=== PATIENT | male | born 1950 | race American Indian/Alaskan Native ===

== ENCOUNTER 2019-01-26 09:47 | Day surgery (SDC) | payer OTHER ==
--- NOTE | 2019-01-26 10:26 | Anesthesia Day of Surgery ---
Anesthesia Day of Surgery - Day of Surgery Patient Examined: Yes Patient H&P Reviewed: Yes Patient is NPO: Yes Beta Blockers: No
--- NOTE | 2019-01-26 10:27 | Anesthesia Consultation ---
Anesthesia Consult and Med Hx Date of service: 01/26/19 - Airway Anesthetic Teeth Evaluation: Good ROM Head & Neck: Adequate Mental/Hyoid Distance: Adequate Mallampati Class: Class III Intubation Access Assessment: Good - Pulmonary Exam CTA: No - Cardiac Exam Cardiac Exam: No Murmur - Pre-Operative Health Status ASA Pre-Surgery Classification: ASA3 Proposed Anesthetic Plan: MAC - Cardiovascular System Hx Hypertension: Yes - Central Nervous System CVA: Yes - Endocrine Hx Hypothyroidism: Yes - Other Systems Hx Cancer: Yes
[2019-01-26] MEDS ORDERED: NACL 0.9% 1000 ML 1,000 ML IV SCH (11:00)
[2019-01-26] MEDS ORDERED: DIPRIVAN 10 MG/ML IV ONE ×2 (11:03)
[2019-01-26] MEDS ORDERED: XYLOCAINE 2% INFILTRATI ONE (11:03)
--- NOTE | 2019-01-26 11:38 | Operative Report ---
Operative Report Operative Report: Date of procedure: 01/26/2019 Procedure: Colonoscopy . Attending physician: Curry Rodriguez MD [place]: Curry Rodriguez MD Indication: Patient is a 68-year-old male who presents for colonoscopy. Patient has a history of rectal bleeding. A colonoscopy serves to evaluate patient so that treatment may be directed based on the findings. Consent: Informed consent was obtained after advising the patient and family regarding nature of this procedure, its indications, potential benefits as well as possible complications including but not limited to bleeding perforation and adverse reaction to medication, infection as well as other cardiopulmonary complications. An informed written and verbal consent was then obtained after due opportunity was provided for questions and answers. Monitoring: Patient was monitored continuously with pulse oximetry and electrocardiographic recordings as well as blood pressure recordings. Vital signs remained stable throughout this procedure with no untoward events. Preoperative assessment: Patient was assessed immediately prior to this procedure for capacity to tolerate monitored anesthesia care and moderate sedation as well as general anesthesia. Patient's ASA classification is 2, Mallampati class is 2, Hyomental distance is 3. Instrument: GoodThreadsn video colonoscope Medications: Propofol given intravenously in divided doses. For details please refer to anesthesia records. Description of procedure: Patient was placed in the left lateral decubitus position after achieving sedation, a digital rectal examination was performed following which the colonoscope was introduced into the anal verge and advanced to the ileocolonic anastomosis which was identified by anastomosis as well as by direct transillumination. The terminal ileum was then intubated for a distance of 30 cm. The colonoscope was subsequently withdrawn with careful inspection of all mucosal surfaces. Patient tolerated this procedure well and was subsequently taken to the recovery room. The following findings were noted. Findings: The preparation was adequate. Patient has some scattered liquid stool that was easily irrigated. There were diverticula seen in the sigmoid and descending colon. Patient had some mucosal changes in the rectum suggestive of radiation proctocolopathy On the retroflexed view at the anal verge, patient had prominent internal hemorrhoids. Impression: Diverticular disease of the colon. 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 Plan: High-fiber diet. May benefit from hemorrhoidal band ligation.
--- NOTE | 2019-01-26 11:39 | Discharge Summary ---
Short Stay Discharge Plan Activity: advance as tolerated Weight Bearing Status: Weight Bear as Tolerated Diet: regular Additional Instructions: Post Sedation D/C Instructions When you return home you may resume your regular diet unless otherwise directed. -Go directly home from the hospital and rest quietly. You may resume normal activities tomorrow. -Do NOT drive, return to work, operate any machinery or make any important personal or business decisions today. -Do NOT drink any alcohol or take nerve or sleeping drugs. They add to the effects of the medicine still present in your body. Follow up with: [facility] [Primary Care Provider] - 7 Days
[2019-01-26] MEDS ORDERED: NEO SYNEPHRINE ONE (14:21)
[2019-01-26] MEDS ORDERED: ROBINUL ONE (14:21)
[2019-01-27 18:45] VITALS: BP 138/79
== END 2019-01-26 09:48 | disposition home or self-care (01) ==
LOC: GIO 09:47
PROVIDERS: ATTEND Internal Medicine Gastroenterology
DX: K57.30 Diverticulosis of large intestine without perforation or abscess without bleeding (principal); K64.8 Other hemorrhoids; K62.89 Other specified diseases of anus and rectum; K62.5 Hemorrhage of anus and rectum; E78.00 Pure hypercholesterolemia, unspecified; I10 Essential (primary) hypertension; E03.9 Hypothyroidism, unspecified; Z85.038 Personal history of other malignant neoplasm of large intestine; Z90.49 Acquired absence of other specified parts of digestive tract; Z85.830 Personal history of malignant neoplasm of bone; Z98.890 Other specified postprocedural states; Z85.46 Personal history of malignant neoplasm of prostate; Z79.899 Other long term (current) drug therapy; Z88.2 Allergy status to sulfonamides; Z88.6 Allergy status to analgesic agent; Z86.73 Personal history of transient ischemic attack (TIA), and cerebral infarction without residual deficits; Z88.8 Allergy status to other drugs, medicaments and biological substances
CPT/HCPCS: 45378; J2370; J2704; J7030